=== PATIENT | female | born 1955 | race Caucasian/White ===

== ENCOUNTER 2018-07-15 09:06 | Day surgery (SDC) | payer OTHER, SELFPAY ==
[2018-07-15] VITALS (7 sets, daily range): BP systolic 93–138; BP diastolic 73–86; PULSE 88–101; RESP 16–17; TEMP 36.8–37.2; O2SAT 98–100; BMI 29.9
--- NOTE | 2018-07-15 10:55 | H&P.OPEN ---
Past Medical/Surgical History - Planned Operation Planned Operative Procedure/s: colonoscopy Date of Operative Procedure: 07/15/18 Permit Signed: No S.O.S: No Is This Patient Having a Total Joint: No - Previous Hospitalizations/Surgeries HX Hospitalizations: Yes HX of Surgeries: colonoscopy 2018 Any Problems With Anesthesia: No You/Your Family Experience Fever (Hyperthermia) With Anes: No Cholinesterase deficiency: No - Cardiovascular Hx Chest Pain within Last 2 months: No Hx of Irregular Heartbeat and/or Afib: No Hx Heart Attack: No Hx Congestive Heart Failure: No Hx Rheumatic Fever: No Hx Hypertension: No Hx Internal Defibrillator: No Hx Pacemaker: No Hx Cardiac Catheterization: No Hx Cardiac Surgery/Stents/Etc.: No Hx Stress Test: No HX Edema: No Hx Pain in Legs when Walking/Leg Cramps: Yes - Respiratory Chronic Cough: No HX of Shortness of Breath: No Hoarseness: No Hx Chronic Obstructive Pulmonary Disease (COPD): No Hx Asthma: No Hx Emphysema: No Hx Sleep Apnea: No Do You Snore Loudly (louder than talking or can be heard): No Do You Often Feel Tired/ Fatigued/ Sleepy Dring Daytime?: No Has Anyone Observed You Stop Breathing During Sleep?: No Result (for STOP score): Negative Hx Smoking: No Smoking Status: Never smoker - Gastrointestinal Hx Gastroesophageal Reflux: Yes Controlled With Meds: Yes - tums Hx Gastrointestinal Disorders: No Hx Gastrointestinal Bleed: Yes Hx Ulcer: No Hx Hiatal Hernia: No Difficulty Chewing/Swallowing: No Recent Onset of Swallowing Problems: No Special diet followed at home: No Hx Unplanned Weight Loss of 20#: No HX Unplanned Weight Gain of 20#: No - Neurological Hx Seizures: No HX Syncope/Blackout Spells/Unconsciousness: Yes - fainted as a child at Dr office Hx CVA/Stroke: No Hx Transient Ischemic Attacks (TIA): No Hx Multiple Sclerosis: No Hx Parkinson's Disease: No Hx Head/Neck Injury: No Hx Back Injury/Pain: Yes - hip adjusted thru PT/ relieved back pain Recent Onset of Speech Difficulty: No Restless Legs: No Does patient have nerve stimulator: No Patient instructed to have device shut off: No Rep notified?: No - Blood Disorder Hx Leukemia: No Bleeding Tendencies: No Hx Deep Vein Thrombosis: No Hx High Cholesterol: Yes Blood Transmitted Disease: No Hx Hepatitis: Yes - at 17yo Hx Cirrhosis: No Hx Anemia: No Hx Blood Disorders: No - Reproduction : No Are You Post Menopause: Yes - Genitourinary Hx Renal Disease: No - Musculoskeletal Hx Arthritis: Yes Hx Rheumatoid Arthritis: No Hx Gout: No Recent Onset of an Orthopedic Problem: No - Endocrine Hx Diabetes: No Thyroid Disease: No Hx Steroid Therapy: No - Psycho/Social Hx Substance Use: No Hx Alcohol Use: No Hx Anxiety: Yes Hx Depression: Yes Mental Illness: No Hx Dementia: No - Miscellaneous Hx Cancer: No Recent Exposure to Contagious Disease: No Active MRSA: No Hx of C-Diff: No Any Loose Teeth: No Allergies No Known Allergies Allergy (Unverified 06/04/18 09:04) - Discharge Who Depends On You At Home: lives with Who Could Help: After D/C, Where Do you Plan to Go: Return Home - Physical Exam General: Alert, Oriented x3, Cooperative, No apparent distress HEENT: Atraumatic, PERRLA, EOMI Lungs: Normal air movement Cardiovascular: Regular rate, Regular Rhythm Abdomen: Soft, Non Tender, Non-Distended Vital Signs Temp Pulse Resp BP Pulse Ox 99.0 F 100 16 138/86 H 100 07/15/18 09:33 07/15/18 09:33 07/15/18 09:33 07/15/18 09:33 07/15/18 09:33 Oxygen Delivery Method Room Air Weight: 174 lb 9.698 oz Body Mass Index (BMI) 29.9 Assessment/Plan 62 yo F who is here for screening colonoscopy 1. Pt has never had colonoscopy, denies any abdominal pain or gross bleeding, no family history of colon cancer. Bola Stephens Surgery Risks - Colonoscopy I discussed with the patient the risks of the procedure: Yes Risks Include but are not Limited To: Risks include but are not limited to: Bleeding, perforation requiring further surgery, inability to complete colonoscopy requiring barium enema.
--- NOTE | 2018-07-15 11:02 | OP.ENDO_ITS ---
Patient Name: Tonia Ennis Procedure Date: 07/15/2018 10:29 AM Date of : 1955 Age: 62 Procedure: Colonoscopy Indications: Screening for colorectal malignant neoplasm Providers: Bola Stephens MD Medicines: Monitored Anesthesia Care Patient Profile: Last Colonoscopy: none. The patient's first colonoscopy is today. Complications: No immediate complications. Procedure: Pre-Anesthesia Assessment: - Prior to the procedure, a History and Physical was performed, and patient medications and allergies were reviewed. The patient's tolerance of previous anesthesia was also reviewed. The risks and benefits of the procedure and the sedation options and risks were discussed with the patient. All questions were answered, and informed consent was obtained. Prior Anticoagulants: The patient has taken no previous anticoagulant or antiplatelet agents. After reviewing the risks and benefits, the patient was deemed in satisfactory condition to undergo the procedure. After I obtained informed consent, the scope was passed under direct vision. Throughout the procedure, the patient's blood pressure, pulse, and oxygen saturations were monitored continuously. The colonoscope was introduced through the anus and advanced to the terminal ileum, with identification of the appendiceal orifice and IC valve. The colonoscopy was performed without difficulty. The patient tolerated the procedure well. The quality of the bowel preparation was good. Scope In: 10:38:12 AM Scope Withdrawal Time 0 hours 6 minutes 21 seconds Scope Out: 10:51:39 AM Total Procedure Duration Time 0 hours 13 minutes 27 seconds Findings: Non-bleeding internal hemorrhoids were found during retroflexion. The hemorrhoids were moderate, medium-sized and Grade I (internal hemorrhoids that do not prolapse). The exam was otherwise without abnormality on direct and retroflexion views. Impression: - Non-bleeding internal hemorrhoids. - The examination was otherwise normal on direct and retroflexion views. - No specimens collected. Recommendation: - Discharge patient to home. - Resume previous diet. - Continue present medications. - Repeat colonoscopy in 10 years for screening purposes. Procedure Code(s): --- Professional --- 07589, Colonoscopy, flexible; diagnostic, including collection of specimen(s) by brushing or washing, when performed (separate procedure) Diagnosis Code(s): --- Professional --- Z12.11, Encounter for screening for malignant neoplasm of colon K64.0, First degree hemorrhoids CPT copyright 2017 [employer]. All rights reserved. The codes documented in this report are preliminary and upon outpatient coder review may be revised to meet current compliance requirements. Bloa Stephens MD 07/15/2018 11:01:34 AM This report has been signed electronically. Number of Addenda: 0 Note Initiated On: 07/15/2018 10:29 AM
== END 2018-07-15 11:32 | disposition home or self-care (01) ==
LOC: EN 09:07 → AC 09:08
PROVIDERS: Family Provider Family Medicine; PCP Family Medicine; Visit Provider Surgery
PROC: 0DJD8ZZ Inspection of Lower Intestinal Tract, Via Natural or Artificial Opening Endoscopic (ICD-10-PCS; CPT 45378; principal; 2018-07-15 09:55)
DX: Z12.11 Encounter for screening for malignant neoplasm of colon (principal); K64.0 First degree hemorrhoids; K21.9 Gastro-esophageal reflux disease without esophagitis; E78.00 Pure hypercholesterolemia, unspecified
CPT/HCPCS: 45378; J7120

== ENCOUNTER → 2019-11-18 13:39 | Outpatient (CLI) | payer OTHER, SELFPAY ==
[2019-11-18 13:05] VITALS: BMI 30.5
--- NOTE | 2019-11-18 13:47 | RAD_ITS ---
STUDY: X-RAY - LEFT HAND, ATTENTION THIRD FINGER REASON FOR EXAM: Female, 63 years old. LEFT 3RD IP JOINT STS AND BRUISING S/P FALL X2 MONTHS AGO TECHNIQUE: 3 view(s) of the finger were obtained. COMPARISON: None. FINDINGS: Normal metacarpal head. Normal metacarpophalangeal joint. Normal proximal phalanx. Normal middle phalanx. Normal distal phalanx. There is mild degenerative arthrosis of the proximal interphalangeal joint. Normal distal interphalangeal joint. There is no demonstrated fracture. Soft tissues are intact. RAD/Finger(s) Min 2 Views IMPRESSION: Mild arthritic change. No fracture. Soft tissues are intact. Electronically Signed: Gino Fernandez MD at 21:57 EST , Service support ,
== END ==
PROVIDERS: PCP Family Medicine; Referring Provider Family Medicine; Visit Provider Family Medicine
DX: S66.912A Strain of unspecified muscle, fascia and tendon at wrist and hand level, left hand, initial encounter (principal)
CPT/HCPCS: 73140

== ENCOUNTER → 2020-11-29 15:38 | Outpatient (CLI) | payer OTHER, SELFPAY ==
[2020-11-29 14:45] VITALS: BMI 32.8
[2020-11-29 17:04] LABS: ALB/GLOB Ratio 1.1 RATIO (0.9-2.4); AST(SGOT) 25 U/L (15-37); Alanine Aminotransfer ALT/SGPT 42 U/L (13-56); Albumin, Serum 4.1 g/dL (3.2-5.0); Alkaline Phosphatase 110 U/L (45-117); Anion Gap 5 (5-15); BUN 14 mg/dL (7-18); BUN/Creat Ratio 15.9 RATIO (10-20); Calcium,Total 9.2 mg/dL (8.5-10.1); Chloride 105 mmol/L (98-107); Cholesterol 213 mg/dL (200); Creatinine, Serum 0.88 mg/dL (0.55-1.02); EST Glomerular Filtration Rate 69 mL/min (>60); Est Glom Filt Rate - Afr Amer 83 mL/min (>60); Globulin 3.8 g/dL (2.2-4.2); Glucose 86 mg/dL (74-106); High Density Lipoprotein 49 mg/dL; Potassium 4.2 mmol/L (3.5-5.1); Protein, Total 7.9 g/dL (6.4-8.2); Sodium Level 139 mmol/L (136-145); Triglycerides 201 mg/dL; Very Low Density Lipoprotein 40 mg/dL (5-40)
== END ==
PROVIDERS: PCP Family Medicine; Referring Provider Family Medicine; Visit Provider Family Medicine
DX: E78.5 Hyperlipidemia, unspecified (principal)
CPT/HCPCS: 36415; 80053; 80061

== ENCOUNTER 2021-12-07 14:54 | Outpatient (CLI) | payer OTHER, SELFPAY ==
[2021-12-07 16:37] LABS: Absolute Lymphocyte Count 1.96 X10^3/uL (0.83-4.51); Basophil# 0.03 X10^3/uL; Basophil% 0.5 % (0-1); Eosinophil# 0.04 X10^3/uL; Eosinophils% 0.6 % (0-5); Hematocrit 41.4 % (37-47); Lymphocyte # 1.96 X10^3/ul (0.83-4.51); Lymphocyte % 29.7 % (19-41); Mean Corp Hgb Conc 33.8 g/dL (32-36); Mean Corpuscular Hgb 29.3 pg (27.0-32.0); Mean Corpuscular Volume 86.6 fL (81-99); Monocyte# 0.56 X10^3/uL; Monocyte% 8.5 % (0-10); NRBC Flagged by Analyzer 0 % (0-5); Neutrophil # 3.98 X10^3/uL (2.7-7.7); Neutrophil % 60.4 % (47-70); Platelet Count 232 K/mm3 (150-450); RBC Distribution Width CV 12.8 % (11.6-14.6); RBC Distribution Width SD 40.2 fl (35.1-43.9); Red Blood Count 4.78 M/mm3 (4.2-5.4); White Blood Count 6.6 K/mm3 (4.4-11.0)
[2021-12-07 17:34] LABS: ALB/GLOB Ratio 1.2 RATIO (0.9-2.4); AST(SGOT) 16 U/L (15-37); Alanine Aminotransfer ALT/SGPT 30 U/L (13-56); Albumin, Serum 4.3 g/dL (3.2-5.0); Alkaline Phosphatase 105 U/L (45-117); Anion Gap 4 (5-15); BUN 20 mg/dL (7-18); BUN/Creat Ratio 22.2 RATIO (10-20); Calcium,Total 9.2 mg/dL (8.5-10.1); Chloride 104 mmol/L (98-107); Cholesterol 167 mg/dL (200); EST Glomerular Filtration Rate 67 mL/min (>60); Est Glom Filt Rate - Afr Amer 81 mL/min (>60); Globulin 3.7 g/dL (2.2-4.2); Glucose 92 mg/dL (74-106); High Density Lipoprotein 44 mg/dL; Potassium 4.4 mmol/L (3.5-5.1); Sodium Level 137 mmol/L (136-145); Triglycerides 142 mg/dL; Very Low Density Lipoprotein 28 mg/dL (5-40)
== END 2021-12-07 23:59 | disposition home or self-care (01) ==
LOC: BIMLAB 14:54
PROVIDERS: PCP Family Medicine; Referring Provider Family Medicine; Visit Provider Family Medicine
DX: E78.2 Mixed hyperlipidemia (principal)
CPT/HCPCS: 36415; 80053; 80061; 85025

== ENCOUNTER → 2023-02-13 | Outpatient (CLI) | payer OTHER, SELFPAY ==
[2023-02-13 12:48] LABS: Absolute Lymphocyte Count 1.45 X10^3/uL (0.83-4.51); Absolute Neutrophil Count 3.9 X10^3/uL (2.0-7.7); Basophil# 0.02 X10^3/uL; Basophil% 0.3 % (0-1); Eosinophil# 0.05 X10^3/uL; Eosinophils% 0.9 % (0-5); Hemoglobin 14.5 g/dL (12.0-15.0); Lymphocyte # 1.45 X10^3/ul (0.83-4.51); Lymphocyte % 24.7 % (19-41); Mean Corpuscular Hgb 29.2 pg (27.0-32.0); Mean Corpuscular Volume 88.7 fL (81-99); Monocyte# 0.41 X10^3/uL; NRBC Flagged by Analyzer 0 % (0-5); Neutrophil # 3.92 X10^3/uL (2.7-7.7); Neutrophil % 66.6 % (47-70); Platelet Count 218 K/mm3 (150-450); RBC Distribution Width CV 12.9 % (11.6-14.6); RBC Distribution Width SD 41.9 fl (35.1-43.9); Red Blood Count 4.96 M/mm3 (4.2-5.4); White Blood Count 5.9 K/mm3 (4.4-11.0)
[2023-02-13 13:47] LABS: AST(SGOT) 26 U/L (15-37); Alanine Aminotransfer ALT/SGPT 47 U/L (13-56); Alkaline Phosphatase 117 U/L (45-117); Anion Gap 4 (5-15); BUN 14 mg/dL (7-18); BUN/Creat Ratio 15.7 RATIO (10-20); Calcium,Total 9.5 mg/dL (8.5-10.1); Chloride 106 mmol/L (98-107); Cholesterol 197 mg/dL (200); Creatinine, Serum 0.89 mg/dL (0.55-1.02); EST Glomerular Filtration Rate 68 mL/min (>60); Est Glom Filt Rate - Afr Amer 82 mL/min (>60); Globulin 4.1 g/dL (2.2-4.2); Glucose 99 mg/dL (74-106); High Density Lipoprotein 44 mg/dL; Potassium 3.9 mmol/L (3.5-5.1); Protein, Total 8.1 g/dL (6.4-8.2); Sodium Level 137 mmol/L (136-145); Triglycerides 185 mg/dL; Very Low Density Lipoprotein 37 mg/dL (5-40)
== END | disposition home or self-care (01) ==
LOC: BIMLAB 11:03
PROVIDERS: PCP Family Medicine; Visit Provider Family Medicine
DX: E78.2 Mixed hyperlipidemia (principal)
CPT/HCPCS: 36415; 80053; 80061; 85025

== ENCOUNTER → 2023-02-15 | Outpatient (CLI) | payer OTHER, SELFPAY ==
--- NOTE | 2023-02-15 10:57 | US_ITS ---
INDICATION: abdominal pain, intermittent x several years EXAMINATION: US Abdomen Complete TECHNIQUE: Apple-scale and color Doppler imaging was performed of the abdomen. COMPARISON: None. Findings: The liver is diffusely homogenous with overall increased echogenicity. There is no evidence of contour nodularity. No focal hepatic mass is identified. The main portal vein is normal in size and patent demonstrating hepatopetal flow. The gallbladder is unremarkable without evidence of stones, wall thickening or pericholecystic fluid. Sonographic Johnson''s tenderness is not appreciated. There is no evidence of intrahepatic biliary ductal dilatation. The CBD is nondilated measuring 3 mm at the level of the poncho hepatis. The visualized portions of the pancreas are unremarkable without evidence of focal or diffuse enlargement. Specifically, the tail is obscured by overlying bowel gas. The spleen is normal in size. Right and left kidneys measure 9.6 cm and 9.5 cm in length respectively. The kidneys are normal in echogenicity. No focal renal lesion is identified. There is no evidence of hydronephrosis bilaterally. The abdominal aorta is normal in caliber where seen. The intrahepatic inferior vena cava is patent. There is no free intraperitoneal fluid identified. US/Abdomen Complete IMPRESSION: Hyperechoic liver without evidence of contour nodularity. Findings are nonspecific and may be consistent with sequelae of fatty infiltration or other forms of diffuse liver disease. No evidence of focal hepatic mass. Remainder of the exam is otherwise unremarkable. Electronically Signed: Sudhakar Ling MD at 23:30 EDT ,
== END | disposition home or self-care (01) ==
PROVIDERS: PCP Family Medicine; Referring Provider Family Medicine; Visit Provider Family Medicine
DX: R10.9 Unspecified abdominal pain (principal)
CPT/HCPCS: 76700

== ENCOUNTER 2023-03-22 06:00 | Day surgery (SDC) | payer OTHER, SELFPAY ==
--- NOTE | 2023-03-22 | GASB_PTH ---
PATIENT: MICHELLE HARMAN LOC: EN U#:[id number] AGE/SX: 67/F ROOM: RE03/22/[address]: Dr. Derek Reaves MD : 1955 BED: DIS: 03/22/2023 SPEC #: [id number] RECD: 03/22/23 08:19 STATUS: EL MINERVA #: [id number] LAM: 03/22/23 00:[address]: Derek Reaves DEPT: SURGICAL PATHOLOGY RECD BY: Bharat Vickers ENTERED: 03/22/23 09:02 SP TYPE: Gastric Bx OTHR DR: Dr. Paul Reyes, DO Tissues: A - Duodenum, NOS B - Gastric mucous membrane C - Gastric mucous membrane D - Esophageal mucous membrane E - Esophageal mucous membrane F - Esophageal mucous membrane Procedures: Special Stain Group II Special Stain Group I Surgery Specimen Level IV GMS Stain (control) Alcian Blue/PAS (control) HEADER OPERATION: EGD ([facility] [place]) with biopsies and polypectomy PRE-OP DIAGNOSIS: Swallowing problem, abdominal pain, acid reflux TISSUE SUBMITTED: A ? Duodenal bulb polyp biopsy, B ? Antrum biopsy for H. pylori and path, C ? Cardia polyp biopsy, D ? Distal esophagus lesion polyp, E ? Distal esophagus biopsy, mucosal change, concern for Augustine?s, F ? Middle third esophagus nodule biopsy MICROSCOPIC DIAGNOSIS A. Duodenal bulb polyp, biopsy: Fragments of duodenal mucosa with mild nonspecific chronic inflammation and gastric metaplasia. B. Antrum, biopsy: Mild gastritis. See microscopic description and comment. C. Cardia polyp, biopsy: Mild gastritis. See microscopic description. D. Distal esophagus lesion polyp, biopsy: A fragment of gastric mucosa with changes consistent with fundic gland polyp. Intestinal metaplasia (goblet cell metaplasia) not identified. See comment. E. Distal esophagus, biopsy: Fragments of squamous mucosa with extensive ulceration and associated acute inflammation and fibrinous exudation. See comment. F. Middle third esophagus nodule, biopsy: Fragments of benign squamous mucosa with congestion. See comment. SJ:rg 03/25/2023 COMMENT B. The results of immunohistochemistry for Helicobacter pylori will be reported separately ([id number]). D. Alcian blue/PAS stain with matched control is used in the evaluation of the specimen. E. Special stain for fungi is negative for organisms; matched control is appropriate. Epithelium is denuded in most of the specimen. F. Detached fragments of squamous epithelium with bacterial colonization is noted. Special stain for fungi is positive for organisms in these fragments consistent with Lina species (yeast and pseudohyphae); matched control is appropriate. A few minute fragments of gastric epithelium are also noted. Intestinal metaplasia (goblet cell metaplasia) is not identified. Alcian blue/PAS stain with matched control is used in the evaluation of the specimen. Correlation with clinical, endoscopic findings and appropriate follow-up are necessary. MICROSCOPIC DESCRIPTION Slides are reviewed. B. The specimen shows fragments of gastric mucosa with chronic inflammatory cell infiltrates in the lamina propria consisting of lymphocytes and plasma cells, consistent with mild chronic gastritis. Hyperplastic or fundic gland polyp changes are not seen. C. The specimen shows fragments of gastric mucosa with chronic inflammatory cell infiltrates in the lamina propria consisting of lymphocytes and plasma cells, consistent with mild chronic gastritis. GROSS DESCRIPTION A - Received in fixative is one container labeled with the patient's name and designated duodenal bulb polyp biopsy. The specimen consists of multiple irregular fragments of light almazan soft tissue that in aggregate measure 1.2 x 0.1 x 0.1 cm. The specimen is totally submitted in one cassette. B - Received in fixative is one container labeled with the patient's name and designated antrum biopsy. The specimen consists of multiple irregular fragments of light almazan soft tissue that in aggregate measure 0.4 x 0.3 x 0.1 cm. The specimen is totally submitted in one cassette. C - Received in fixative is one container labeled with the patient's name and designated cardia polyp biopsy. The specimen consists of multiple irregular fragments of light almazan soft tissue that in aggregate measure 0.3 x 0.3 x 0.1 cm. The specimen is totally submitted in one cassette. D - Received in fixative is one container labeled with the patient's name and designated distal esophagus lesion polyp. The specimen consists of a almazan-pink polyp measuring 0.5 x 0.5 x 0.2 cm. A few fragments of food particles are also noted. The specimen is totally submitted in one cassette. E - Received in fixative is one container labeled with the patient's name and designated distal esophagus biopsy, mucosal change, concern for Augustine's. The specimen consists of two irregular fragments of light almazan soft tissue that in aggregate measure 0.6 x 0.3 x 0.1 cm. The specimen is totally submitted in one cassette. F - Received in fixative is one container labeled with the patient's name and designated middle third esophagus nodule biopsy. The specimen consists of multiple irregular fragments of light almazan soft tissue that in aggregate measure 1.0 x 0.3 x 0.1 cm. The specimen is totally submitted in one cassette. / SJ:rg 03/22/2023 TC:2 CPT: 72775 x6, 40354 x2, 26619 x2
[2023-03-22 06:40] VITALS: BP 128/79; PULSE 98; RESP 16; TEMP 36.3; O2SAT 98; BMI 34.8
--- NOTE | 2023-03-22 07:00 | IMM_PTH ---
PATIENT: MICHELLE HARMAN LOC: EN U#:[id number] AGE/SX: 67/F ROOM: RE03/22/[address]: Dr. Derek Reaves MD : 1955 BED: DIS: 03/22/2023 SPEC #: [id number] RECD: 03/22/23 12:59 STATUS: EL REJamarcus #: [id number] LAM: 03/22/23 07:[address]: Derek Reaves DEPT: IMMUNOHISTOCHEMISTRY RECD BY: Iris Villalobos ENTERED: 03/22/23 13:00 SP TYPE: IMMUNO OTHR DR: Dr. Paul Reyes, Tissues: B - Stomach, NOS Procedures: H Pylori (initial) PHYSICIAN & INSTITUTION [place] [id number] SPECIMEN INFORMATION: Tissue Source: B - Antrum Clinical Info: Swallowing problem, abdominal pain, acid reflux Specimen Number: [id number] CPT code: 95099 METHODOLOGY: Deparaffinized sections of prefer/formalin-fixed tissue or PAP/DQ stained slides are incubated with monoclonal/polyclonal antibodies/oligonucleotide probes. Localization is made via biotin free immunoperoxidase method. Appropriate controls are performed and reacted as expected. Results on target cell population are indicated in the following table: RESULTS: ANTIBODY / CLONE RESULT Block B H Pylori (polyclonal) negative These tests were developed and their performance characteristics determined by [facility]. They may not have been cleared or approved by the [place]. Food and Drug Administration. The FDA has determined that such clearance or approval is not necessary. The above immunohistochemical/dualISH markers are ordered and reviewed by the Pathologist. INTERPRETATION: B. Antrum, biopsy: Negative for Helicobacter pylori organisms. SJ:adam 03/25/2023
[2023-03-22] MEDS: Lactated Ringers 1,000 ML 15 ML IV (07:03)
--- NOTE | 2023-03-22 07:03 | PCM.HP.BLA ---
History and Physical Date of Admission: 03/22/23 Date of Service:? 03/19/23 MR#: [id number] Acct: [id number] Name:MICHELLE DWYER Rep #: [id number] : 1955 ? ? Provider: Dr. Derek Reaves MD Age/Sex:? 67/F ? ? Location: [facility] Status: Signed Intake Vital Signs ? 03/19/2313:15 Height 5 ft 4 in Weight: 204 lb BMI 35.0 BP 126/84 H Blood Pressure Location Rt brachial Position Sitting Respiration 16 Intake Visit Reasons:?UPPER SCOPE - DIFFICULTY SWALLOWING Chief Complaint: upper scope Industrial Relations Representative Required: No Is patient in pain?: No Allergies No Known Allergies Allergy (Verified 03/19/23 14:27) Medications minocycline 100 mg tablet 100 mg PO DAILY PRN Rosacea #30 tabs 02/13/23 [Rx Confirmed 03/19/23] simvastatin 10 mg tablet 10 mg PO QPM cholesterol #90 tabs 02/13/23 [Rx Confirmed 03/19/23] venlafaxine 75 mg capsule,extended release 24 hr (Effexor XR) 75 mg PO QAM #90 caps 02/13/23 [Rx Confirmed 03/19/23] PFSH Medical History?(Updated 03/19/23 @ 17:[address] Derek Reaves MD) Anxiety Difficulty swallowing Gastric reflux Hepatitis High cholesterol Hyperlipidemia Non-smoker Wears contact lenses Wears glasses Surgical History? History of colonoscopy Family History? Father Heart disease GlaucomaMother Diabetes HypertensionSister Breast cancer Hypertension Heart disease Partial deafness Social History? Smoking Status:? Never smoker alcohol intake:? current alcohol intake frequency: holidays/special occasions only substance use type:? does not use what type of physical activity do you participate in:? none HPI HPI HPI: Patient is a 67-year-old female who presents for complaints of dysphagia.? They are referred for surgical consultation from Dr. Reyes. ? Patient states that all of her work-up started when she first noticed pain in her right upper quadrant.? She notes that she initially had a right upper quadrant ultrasound that showed a gallstone, but subsequent imaging (x2) have not shown this finding.? She estimates that her current complaints of food becoming stuck began roughly last September.? She states that initially she became panicky but now tells her self to simply breathe.? She states that this symptom occurs almost every day at lunchtime.? She has not identified any particular food triggers.? However, she does note that this is usually fast food and tend to be sandwiches.? She has not noticed a progressive character to the symptoms.? She states where things feel stuck is behind her breastbone.? She denies things becoming stuck higher up. She confirms that sometimes she will wake up in the evenings with throw up in the back of [her] mouth.? She confirms that this is not every day.? She does note that it is worse if she is eating pizza or eats later at night.? She estimates this occurs at a frequency of 1 time per week.? She denies sleeping with her head propped up. Patient's current caffeine intake amounts to a lot of iced tea.? She states that when drinking such beverages she will experience pain that goes up into her neck and jaw as well as across her right upper arm. Patient states that she takes dinner at approximately 7 PM and then retires to bed between 10 and 11 PM.? She notes occasional snacking after dinner. When the above symptoms present patient takes Tums and twice has taken Tagamet.? She notes that she takes Tums at least once every day, but sometimes multiple times per day. Patient confirms a history of weight gain.? She estimates that she has gained 30 to 40 pounds since COVID.? She attributes this to decreased activity. Additionally, patient confirms that she has become a snorer where previously she did not used to snore. Patient also confirms a history of frequent coughing which she believed was related to her COVID vaccination, but with our discussions there is question whether there may be an alternative source. Patient has no prior surgical history. Patient denies any current prescription for PPI medication. Patient confirms a history of colonoscopy in [address] Stephens.? She was found to have hemorrhoids, but nothing additional was remarkable and she was given 10-year follow-up. ROS General General: Yes weight change; No appetite, fatigue, colon cancer, breast cancer or weakness HEENT HEENT: Yes difficulty swallowing; No eye injury, eye surgery, swollen glands or hoarseness Endo Endocrine: No thyroid disease, diabetes mellitus, thyroid cancer, Hair loss, heat intolerance or cold intolerance Skin Skin: No rash or changing moles Breast Breast: No left breast lump, right breast lump, nipple discharge, breast pain, abnormal mammogram, abnormal US or breast enlargement Musc Musculoskeletal: No back problems, arthritis, rheumatoid arthritis, gout or joint pain Cardio Cardiovascular: No murmur, pacemaker, heart disease, atrial fibrillation, high blood pressure, heart attack, heart stent, palpitations, shortness of breat with exertion or chest pain Psych Psychiatric: Yes anxiety; No depression or hearing voices Resp Respiratory: No shortness of breath, No sleep apnea, No cough, No COPD, No asthma, No emphysema and No wheezing Gastro Gastrointestinal: No abdominal pain, No nausea or vomiting, No diarrhea, No constipation, No blood in stool, No acid reflux, Yes hemorrhoids, No ulcers, No gallbladder problem and No black,tarry stools Jf Hematologic: No blood thinners, No blood disorders, No bleeding, No anemia and No blood clots Neuro Neurologic: No system reviewed and no additional complaints, except as documented, No as per HPI, No abnormal gait, No abnormal hearing, No abnormal movements, No abnormal speech, No behavioral changes, No burning sensations, No confusion, No convulsions, No disequilibrium, No dizziness, No localized weakness, No frequent falls, No headache(s), No lack of coordination, No loss of vision, No memory loss, No numbness, No other visual disturbances, No radicular pain, No restless legs, No sensory deficit, No syncope, No tingling, No tremor(s), No weakness and No other Exam Const General: cooperative and anxious Orientation: alert, awake and oriented x3 Resp Effort & Inspection: normal respiratory effort GI Other: No scars, nondistended, soft, mildly tender to palpation of the right upper quadrant (but otherwise benign with palpation throughout the abdomen).? Negative Johnson sign. Assessment and Plan Assessment and Plan (1) Swallowing problem: ?Status:?Acute ?Comment: Patient describes several month history of swallowing difficulty as if things become stuck in the retrosternal position.? Based on her history of frequent reflux as well I am suspicious for possible hiatal hernia versus and gastritis/esophagitis versus other.? She clearly denies any concern for things becoming stuck higher up in her cervical esophagus.? Her abdominal exam is benign.? Given the duration of her symptoms, I do find it reasonable to pursue a diagnostic EGD.? Colonoscopy is not indicated at this time given a normal study in 2018 with 10-year follow-up and no concerning lower GI symptoms.? I have offered to start a PPI medication at this time versus await EGD findings.? At this time she is inclined to wait on starting the medication.? The relevant anatomy and physiology was discussed with hand drawings of normal versus pathologic anatomical relationships.? All questions were taken from the patient and her spouse.? Preventative strategies for minimizing reflux symptoms were given. ?Plan: ? Diagnostic EGD to be performed at our mutual convenience. ? Patient encouraged to minimize caffeine, space out mealtime from bedtime, and prop up her head at nighttime (2) Abdominal pain: ?Status:?Chronic ?Comment: Patient describes near constant right upper quadrant discomfort.? There is no postprandial onset.? Patient has not identified any food triggers.? Based on history, this does not seem to be very suggestive of gallbladder etiology.? Further, patient has had 3 studies of her gallbladder via ultrasound and the latest 2 studies have failed to find gallstones.? Should patient's history changed to more of a postprandial onset, HIDA imaging could be considered for possible rule out biliary dyskinesia. (3) Weight increasing: ?Status:?Chronic ?Comment: I suspect this may be contributing to patient's reflux experience and the relationship to reflux was detailed with patient and her . (4) Acid reflux: ?Status:?Acute ?Comment: Patient describes semifrequent nighttime awakenings with acid and esophageal discomfort.? Patient taking Tums every day for the symptoms.? PPI offered, but patient wishes to defer decision until after EGD.? See above. Interval: Pt confirms the above and states that she has already tried to make changes out of our conversation; now cutting back on caffeine intake and exercising. She believes there has been some response with cutting back on caffeine. There are no questions from either her or her spouse so we will proceed with EGD as planned.
[2023-03-22 08:07] VITALS: BP 120/86; PULSE 98; RESP 18; TEMP 36.2; O2SAT 97
[2023-03-22 08:10] VITALS: BP 120/86; BP 123/81; PULSE 96; RESP 18; O2SAT 99
--- NOTE | 2023-03-22 08:13 | OP.EGD_ITS ---
Patient Name: Tonia Ennis Procedure Date: 03/22/2023 7:04 AM Date of : 1955 Age: 67 Procedure: Upper GI endoscopy Indications: Suspected gastro-esophageal reflux disease Providers: Derek Reaves MD Referring MD: Derek Reaves MD Medicines: See the Anesthesia note for documentation of the administered medications Patient Profile: Refer to note in patient chart for documentation of history and physical. Patient has symptoms of chronic dysphagia. Complications: No immediate complications. Estimated blood loss: Minimal. Procedure: Pre-Anesthesia Assessment: - The heart rate, respiratory rate, oxygen saturations, blood pressure, adequacy of pulmonary ventilation, and response to care were monitored throughout the procedure. After obtaining informed consent, the endoscope was passed under direct vision. Throughout the procedure, the patient's blood pressure, pulse, and oxygen saturations were monitored continuously. The gastroscope was introduced through the mouth, and advanced to the second part of duodenum. The upper GI endoscopy was accomplished without difficulty. The patient tolerated the procedure. Scope In: 7:21:41 AM Scope Out: 7:56:06 AM Total Procedure Duration Time 0 hours 34 minutes 25 seconds Findings: No gross lesions were noted in the second portion of the duodenum. No biopsies or other specimens were collected for this exam. A few 2 mm semi-sessile polyps with no bleeding were found in the duodenal bulb. Biopsies were taken with a cold forceps for histology. Estimated blood loss was minimal. Localized mild inflammation characterized by erythema was found in the gastric antrum. Biopsies were taken with a cold forceps for Helicobacter pylori testing. Estimated blood loss was minimal. A few 3 mm pedunculated and sessile polyps with no bleeding and no stigmata of recent bleeding were found in the cardia. Biopsies were taken with a cold forceps for histology. Estimated blood loss was minimal. The Z-line was irregular and was found 35 cm from the incisors. No biopsies or other specimens were collected for this exam. A medium-sized hiatal hernia was present. LA Grade C (one or more mucosal breaks continuous between tops of 2 or more mucosal folds, less than 75% circumference) esophagitis with no bleeding was found 32 to 36 cm from the incisors. Biopsies were taken with a cold forceps for histology. Estimated blood loss was minimal. A single 5 mm polyp with no bleeding was found 35 cm from the incisors. The polyp was removed with a hot snare. Resection and retrieval were complete. Estimated blood loss was minimal. A few 5 mm mucosal nodules with a localized distribution were found in the middle third of the esophagus. Biopsies were taken with a cold forceps for histology. Estimated blood loss was minimal. Impression: - No gross lesions in the second portion of the duodenum. No specimens collected. - A few duodenal polyps. Biopsied. - Gastritis. Biopsied. - A few gastric polyps. Biopsied. - Z-line irregular, 35 cm from the incisors. No specimens collected. - Medium-sized hiatal hernia. - LA Grade C reflux esophagitis. Rule out Augustine's esophagus. Biopsied. - Esophageal polyp(s) were found. Resected and retrieved. - Mucosal nodule found in the esophagus. Biopsied. Recommendation: - Discharge patient to home (via wheelchair). - Soft diet today. - Use Protonix (pantoprazole) 40 mg PO daily today. - Continue present medications. Procedure Code(s): --- Professional --- 67388, 59, Esophagogastroduodenoscopy, flexible, transoral; with biopsy, single or multiple Diagnosis Code(s): --- Professional --- K31.7, Polyp of stomach and duodenum K29.70, Gastritis, unspecified, without bleeding K22.8, Other specified diseases of esophagus K44.9, Diaphragmatic hernia without obstruction or gangrene K21.0, Gastro-esophageal reflux disease with esophagitis CPT copyright 2017 [employer]. All rights reserved. The codes documented in this report are preliminary and upon braille coder review may be revised to meet current compliance requirements. Derek Reaves MD 03/22/2023 8:12:45 AM This report has been signed electronically. Number of Addenda: 0 Note Initiated On: 03/22/2023 7:04 AM
--- NOTE | 2023-03-22 08:14 | OP.CCLET_ITS ---
03/22/2023 Paul Reyes Re : Upper GI endoscopy procedure for Tonia Ennis Dear Dr. Reyes This procedure was performed on Wednesday, March 22, 2023. My impressions and recommendations are as follows: Impressions : - No gross lesions in the second portion of the duodenum. No specimens collected. - A few duodenal polyps. Biopsied. - Gastritis. Biopsied. - A few gastric polyps. Biopsied. - Z-line irregular, 35 cm from the incisors. No specimens collected. - Medium-sized hiatal hernia. - LA Grade C reflux esophagitis. Rule out Augustine's esophagus. Biopsied. - Esophageal polyp(s) were found. Resected and retrieved. - Mucosal nodule found in the esophagus. Biopsied. Recommendations : - Discharge patient to home (via wheelchair). - Soft diet today. - Use Protonix (pantoprazole) 40 mg PO daily today. - Continue present medications. My findings are described in the full procedure note, which is enclosed. If I can be of further assistance, please feel free to contact me at Doctor phone number(s): , Work: . Sincerely, Derek Reaves MD 03/22/2023 8:12:45 AM This report has been signed electronically.
[2023-03-22 08:19] VITALS: BP 120/86; BP 127/81; PULSE 105; RESP 18; O2SAT 100
[2023-03-22 08:20] VITALS: BP 117/78; BP 120/86; PULSE 82; RESP 18; TEMP 36.4; O2SAT 99
[2023-03-22 08:51] VITALS: BP 120/86
== END 2023-03-22 08:52 | disposition home or self-care (01) ==
LOC: EN 06:06 → AC 06:06
PROVIDERS: PCP Family Medicine; Referring Provider Family Medicine; Visit Provider Surgery
PROC: 0DJ08ZZ Inspection of Upper Intestinal Tract, Via Natural or Artificial Opening Endoscopic (ICD-10-PCS; CPT 43235; principal; 2023-03-22 06:55)
DX: K21.00 Gastro-esophageal reflux disease with esophagitis, without bleeding (principal); M54.2 Cervicalgia; R13.10 Dysphagia, unspecified; K22.81 Esophageal polyp; K44.9 Diaphragmatic hernia without obstruction or gangrene; M79.621 Pain in right upper arm; K31.7 Polyp of stomach and duodenum; K29.70 Gastritis, unspecified, without bleeding; K22.70 Barrett's esophagus without dysplasia
CPT/HCPCS: 43239; 43251; 88305; 88312; 88313; 88342; J7120; J2405

== ENCOUNTER → 2023-09-05 | Outpatient (CLI) | payer OTHER, SELFPAY ==
--- NOTE | 2023-09-05 08:04 | MRI_ITS ---
STUDY: MRI RIGHT SHOULDER REASON FOR EXAM: Female, 67 years old. Pain right shoulder. TECHNIQUE: Standardized fat and water weighted pulse sequences were obtained in all 3 orthogonal planes. COMPARISON: Right shoulder radiographs dated 08/06/2023. FINDINGS: There is a partial thickness bursal surface tear of the anterior distal supraspinatus tendon insertion, overall measuring 5 mm in length (coronal T2 series 6 images 14-15) and 7 mm in width (axial T2 series 4 image 7). Normal infraspinatus tendon. There is subscapularis tendinosis. Normal teres minor tendon. Normal supraspinatus muscle. Normal infraspinatus muscle. Normal subscapularis muscle. Normal teres minor muscle. There is a tiny glenohumeral joint effusion. Normal humeral head and visualized proximal humerus. Normal biceps labral complex. Normal intracapsular long biceps tendon. Normal labrum. Normal capsulo-ligamentous complex. Normal rotator interval. There is mild hypertrophic acromioclavicular arthrosis, with inferior osteophyte formation. There is a Type II morphology (curved), with a neutral orientation. There is a small amount of subacromial-subdeltoid bursal fluid. Normal visualized coracohumeral and coracoacromial ligaments. Normal quadrilateral space. Normal axillary space. Normal deltoid muscle. Normal trapezius muscle. MRI/Upper Ext Joint Only(Routine) IMPRESSION: 5 x 7 mm partial thickness bursal surface tear of the anterior distal supraspinatus tendon insertion. Subscapularis tendinosis. Mild hypertrophic acromioclavicular arthrosis, with inferior osteophyte formation. Mild subacromial-subdeltoid bursitis. Tiny glenohumeral joint effusion. Electronically Signed: Wander Arredondo MD at 9:50 EST ,
== END | disposition home or self-care (01) ==
LOC: MRI 07:56
PROVIDERS: PCP Family Medicine; Referring Provider Orthopaedic Surgery Sports Medicine; Visit Provider Orthopaedic Surgery Sports Medicine
DX: M25.511 Pain in right shoulder (principal)
CPT/HCPCS: 73221

== ENCOUNTER → 2023-10-23 | Outpatient (CLI) | payer OTHER, SELFPAY ==
[2023-10-23 09:25] LABS: Bacteria 0 SEEN /hpf (None Seen); Mucous, Urine 0 SEEN /hpf (<or=2+); Red Blood Cells-Urine 0 SEEN /hpf (0-5); Squamous Epithelial Cells - UA 0 SEEN /hpf (5-10); White Blood Cells 0 SEEN /hpf (0-5)
--- OUTSIDE RECORDS SUMMARY | 2023-10-23 10:34 | XMS RPT_ITS | CCD ---
Author Name Unknown Address [facility] [address] [place] [id number] Organization [facility] Care Team Providers Care Independent Living Instructor Name Role Phone JEMAL FAITH DO Primary Care Physician JEMAL FAITH DO Primary Care Unavailable JEMAL FAITH DO Attending Linnea ESTRELLA MD, ANGELICA Attending Unavailable JEMAL FAITH DO Primary Care Unavailable Results Test Name Value Interpretation Reference Range Facil ity Encounters Encounter Date Encounter Type Care Provider Facility Start: 08-07-2023 ambulatory ANGELICA ESTRELLA MD Facil ity:B Start: 02-25-2023 End: 02-26-2023 ambulatory JEMAL FAITH DO Facility:B Start: 02-25-2023 End: 02-25-2023 Patient encounter procedure JEMAL FAITH DO [facility] Start: 12-15-2021 End: 12-15-2021 Patient encounter procedure JEMAL FAITH DO [facility] Immunizations Immunization Date Immunization Notes Care Provider Fa cility 12-26-2020 COVID-19, mRNA, LNP- S, PF, 100 mcg or 50 mcg dose; Translations: [Moderna COVID-19 Vaccine] JEMAL FAITH DO [facility] 07-29-2020 influenza virus vaccine, unspecified formulation JEMAL FAITH DO [facility] 10-25-2019 influenza virus vaccine, unspecified formulation JEMAL FAITH DO [facility] 08-29-2018 influenza virus vaccine, unspecified formulation JEMAL FAITH DO [facility] 09-09-2014 influenza virus vaccine, unspecified formulation JEMAL FAITH DO [facility] Payers Date Payer Category Payer Unknown [id number] 1955 Unknown [id number] 1955 Unknown [id number] Clinical Note 02-25-2023 Note Date & Type Note Facility 02-25-2023 Note ORIGINAL FROM: [place] [address] PROCEDURE FOR: MICHELLE HARMAN [address] [place] [address] Home: PID#: [id number] Exam#: [id number] : 1955 Age: 67 TO: JEMAL FAITH DO [address] [place] [address] EXAMINATION: SCREENING DIGITAL BILATERAL MAMMOGRAM WITH TOMOSYNTHESIS, 02/25/2023 7:52 am TECHNIQUE: Screening mammography of the bilateral breasts was performed with tomosynthesis. 2D standard and 3D tomosynthesis combination imaging performed through both breasts in the MLO and CC projection. Computer aided detection was utilized in the interpretation of this exam. COMPARISON: 12/15/2021, 11/09/2020 HISTORY: Breast cancer screening. FINDINGS: BREAST DENSITY: Scattered fibroglandular tissue There are benign appearing densities in both breasts. There are no significant masses or calcifications. IMPRESSION: No mammographic evidence of malignancy. Continued screening with annual mammograms is recommended. BIRADS: MAMMOGRAM BI-RADS: 2: Benign finding RECALL: 1 year screening RECALL TYPE: mammo LETTER SENT: Normal BI-RADS 1 and 2 Interpreted by: Dandre Florez MD Preliminary Report By: Dandre Florez MD Electronically signed By Dandre Florez MD Dictated Date: 02/25/2023 2:35:21 PM Prelim Date: 02/25/2023 2:42:03 PM Sign Date: 02/25/2023 2:42:03 PM Ordering Provider: JEMAL FAITH [employer] Operator: FABIAN DOYLE RT(R) (M) letter sent: Normal BI-RADS 1 and 2 Mammogram BI-RADS: 2 Benign [facility] Clinical Note 02-25-2023 Note Date & Type Note Facility 02-25-2023 Note ORIGINAL FROM: [place] [address] PROCEDURE FOR: MICHELLE HARMAN [address] [place] [address] Home: PID#: [id number] Exam#: [id number] : 1955 Age: 67 TO: JEMAL FAITH DO [address] [place] [address] EXAMINATION: SCREENING DIGITAL BILATERAL MAMMOGRAM WITH TOMOSYNTHESIS, 02/25/2023 7:52 am TECHNIQUE: Screening mammography of the bilateral breasts was performed with tomosynthesis. 2D standard and 3D tomosynthesis combination imaging performed through both breasts in the MLO and CC projection. Computer aided detection was utilized in the interpretation of this exam. COMPARISON: 12/15/2021, 11/09/2020 HISTORY: Breast cancer screening. FINDINGS: BREAST DENSITY: Scattered fibroglandular tissue There are benign appearing densities in both breasts. There are no significant masses or calcifications. IMPRESSION: No mammographic evidence of malignancy. Continued screening with annual mammograms is recommended. BIRADS: MAMMOGRAM BI-RADS: 2: Benign finding RECALL: 1 year screening RECALL TYPE: mammo LETTER SENT: Normal BI-RADS 1 and 2 Interpreted by: Dandre Florez MD Preliminary Report By: Dandre Florez MD Electronically signed By Dandre Florez MD Dictated Date: 02/25/2023 2:35:21 PM Prelim Date: 02/25/2023 2:42:03 PM Sign Date: 02/25/2023 2:42:03 PM Ordering Provider: JEMAL FAITH [employer] Operator: FABIAN DOYLE RT(R) (M) letter sent: Normal BI-RADS 1 and 2 Mammogram BI-RADS: 2 Benign [facility] Evaluation + Plan note Note Date & Type Note Facility Evaluation + Plan note No data available for this section [facility] Hospital Discharge instructions Note Date & Type Note Facility Hospital Discharge instructions No data available for this section [facility] Summary Purpose Family History No Family History Records Found Advance Directives No Advanced Directives Records Found Additional Source Comments Patient Care team informatio n (unrecognized section and content) Care Team Personnel Name: JEMAL FAITH DO Member Role: Primary Care Physician Address: Address: [facility] [address] [place] [address] Care Team Related Persons Name: ELÍAS HARMAN Address: [address] INFORMATION SOURCE (unrecogn ized section and content) FOR RECORDS PERTAINING TO PATIENTS WHO ARE OR HAVE BEEN ENROLLED IN A CHEMICAL DEPENDENCY/SUBSTANCEABUSE PROGRAM, SOME INFORMATION MAY BE OMITTED. This clinical summary was aggregated from multiple sources. Caution should be exercised in using it in the provision of clinical care. This summary normalizes information from multiple sources, and as a consequence, information in this document may materially change the coding, format and clinical context of patient data. In addition, data may be omitted in some cases. CLINICAL DECISIONS SHOULD BE BASED ON THE PRIMARY CLINICAL RECORDS. [employer] provides no warranty or guarantee of the accuracy or completeness of information in this document.
[2023-10-23 12:27] LABS: Color, Urine Yellow (Yellow); Glucose, Dipstick Normal (Normal); Ketone-Dipstick Negative (Negative); Leukocyte Esterase-Dipstick Negative /ul (Negative); Nitrite-Dipstick Negative (Negative); Occult Blood-Urine Negative /ul (Negative); Protein-Dipstick Negative (Negative); Urine Bilirubin Dipstick Negative (Negative); Urine Clarity Sl. Cloudy (Clear); Urine Urobilinogen Normal (Normal); Urine pH 6.5 (5.0 - 8.0)
[2023-10-23 12:36] LABS: Transitional Epithelial - Ur 0-5 SEEN /hpf (0-5)
== END | disposition home or self-care (01) ==
LOC: LABSPEC 09:21
PROVIDERS: PCP Family Medicine; Referring Provider Family Medicine; Visit Provider Family Medicine
DX: R31.9 Hematuria, unspecified (principal); M75.101 Unspecified rotator cuff tear or rupture of right shoulder, not specified as traumatic
CPT/HCPCS: 81001

== ENCOUNTER 2023-11-20 07:43 | Day surgery (SDC) | payer OTHER, SELFPAY ==
[2023-11-20] MEDS: Lactated Ringers 1,000 ML 15 ML IV (08:17)
--- OUTSIDE RECORDS SUMMARY | 2023-11-20 08:18 | XMS RPT_ITS | CCD ---
Author Name Unknown Address [facility] access hospital[facility] [address] [place] [id number] Organization [facility] Care Team Providers Care Medical Collections Specialist Name Role Phone JEMAL FAITH DO Primary [...] 02-25-2023 Patient encounter procedure JEMAL FAITH DO [facility] Start: 12-15-2021 End: 12-15-2021 Patient encounter procedure JEMAL FAITH DO [facility] Immunizations Immunization Date Immunization Notes Care Provider Fa cility 12-26-2020 COVID-19, mRNA, LNP- S, PF, 100 mcg or 50 mcg dose; Translations: [Moderna COVID-19 Vaccine] JEMAL FAITH DO [facility] 07-29-2020 influenza virus vaccine, unspecified formulation JEMAL FAITH DO [facility] 10-25-2019 influenza virus vaccine, unspecified formulation JEMAL FAITH DO [facility] 08-29-2018 influenza virus vaccine, unspecified formulation JEMAL FAITH DO [facility] 09-09-2014 influenza virus vaccine, unspecified formulation JEMAL FAITH DO [facility] Payers Date Payer Category Payer Unknown [id number] 1955 Unknown [id number] 1955 Unknown [id number] Clinical Note 02-25-2023 Note Date & Type Note Facility 02-25-2023 Note ORIGINAL FROM: [place] [id number] PROCEDURE FOR: MICHELLE HARMAN [address] [place] [address] Home: PID#: [id number] Exam#: [id number] : 1955 Age: 67 TO: JEMAL FAITH DO [address] [place] [address] EXAMINATION: SCREENING DIGITAL BILATERAL MAMMOGRAM WITH TOMOSYNTHESIS, [...] 02/25/2023 2:42:03 PM Ordering Provider: JEMAL FAITH Hydrographical Technical Officer: FABIAN DOYLE RT(R) (M) letter sent: Normal BI-RADS 1 and 2 Mammogram BI-RADS: 2 Benign [facility] Clinical Note 02-25-2023 Note Date & Type Note Facility 02-25-2023 Note ORIGINAL FROM: [place] [address] PROCEDURE FOR: MICHELLE HARMAN [address] [place] [address] Home: PID#: [id number] Exam#: [id number] : 1955 Age: 67 TO: JEMAL FAITH DO [address] [place] [address] EXAMINATION: SCREENING DIGITAL BILATERAL MAMMOGRAM WITH TOMOSYNTHESIS, [...] 02/25/2023 2:42:03 PM Ordering Provider: JEMAL FAITH Hydrographical Technical Officer: FABIAN DOYLE RT(R) (M) letter sent: Normal BI-RADS 1 and 2 Mammogram BI-RADS: 2 Benign [facility] Evaluation + Plan note Note Date & Type Note Facility Evaluation + Plan note No data available for this section [facility] Hospital Discharge instructions Note Date & Type Note Facility Hospital Discharge instructions No data available for this section [facility] Summary Purpose Family History No Family History Records Found Advance Directives No Advanced Directives Records Found Additional Source Comments Patient Care team informatio n (unrecognized section and content) Care Team Personnel Name: JEMAL FAITH DO Member Role: Primary Care Physician Address: Address: [facility] [address] [place] [address] Care Team Related Persons Name: ELÍAS HARMAN Address: [address] INFORMATION SOURCE (unrecogn ized section and [...] BE BASED ON THE PRIMARY CLINICAL RECORDS. [facility]. provides no warranty or guarantee of the accuracy or completeness of information in this document.
[2023-11-20 08:20] VITALS: BP 149/69; PULSE 102; RESP 17; TEMP 36.9; O2SAT 100; BMI 34.8
--- NOTE | 2023-11-20 08:36 | HP.PCM_ITS ---
HPI - General HPI Narrative MICHELLE HARMAN, is a 67 F who presents for right shoulder arthroscopy, subacromial decompression, rotator cuff repair. no changes to h and p. shoulder marked. rab, narcotic counselling and post op instructions. ok to proceed. MR#: [id number] Acct: [id number] Name: MICHELLE HARMAN Rep #: [id number] : 1955 Provider: Dr. Sam Mcnulty MD Age/Sex: 67/F Location: [facility] [place].[facility] Status: Signed Intake Vital Signs 08/06/2308:03 Height 5 ft 4 in Intake Visit Reasons: RIGHT SHOULDER Accompanied by: Is patient in pain?: Yes Allergies No Known Allergies Allergy (Verified 10/22/23 08:04) Medications venlafaxine 75 mg capsule,extended release 24 hr (Effexor XR) 75 mg PO QAM #90 caps 08/08/23 [Rx Confirmed 10/22/23] pantoprazole 40 mg tablet,delayed release 40 mg PO DAILY #90 tabs 10/01/23 [Rx Confirmed 10/22/23] simvastatin 10 mg tablet 10 mg PO QPM cholesterol #90 tabs 10/01/23 [Rx Confirmed 10/22/23] PFSH Medical History Anxiety Difficulty swallowing Gastric reflux Hepatitis High cholesterol Hyperlipidemia Non-smoker Right rotator cuff tear Right shoulder pain Wears contact lenses Wears glasses Surgical History History of colonoscopy Family History Father Heart disease GlaucomaMother Diabetes HypertensionSister Breast cancer Hypertension Heart disease Partial deafness Social History Smoking Status: Never smoker alcohol intake: current alcohol intake frequency: holidays/special occasions only substance use type: does not use what type of physical activity do you participate in: none HPI RIGHT SHOULDER Details: This documentation accurately reflects the service provided and the decisions made by me, Dr. Sam Mcnulty MD 10/22/23 0803. Part of today?s visit was documented by [ ], acting as scribe. MICHELLE HARMAN is a 67 year old F here today for FU right shoulder pain, some improvement with forward lifting. worse in abduction, injection helped some to sleep. haven't been doing very well with home based exercises. stll having quite a bit of lateral and anterior pain, some to posterior triceps area. Ortho Exam General General: Yes no acute distress Neurologic: Yes alert and Yes oriented x3 Psychologic: Yes reasonable and appropriate Right Shoulder Skin/Wound: Yes CDI, No ecchymosis, No erythema and No swelling Testing: Positive Hawkin's, Neer's, Speed's, TTP Biceps and empty can; Negative TTP AC Joint, Drop Arm or scapular winging SHOULDER: normal motor and sens to ax nerve, and MRU and AIN/PIN pain with minimal motion, active FE 100, passive 150 but painful, ER 45. painful arc Coding Level of Care Code Off vis,est,level 3 Diagnoses Right rotator cuff tear M75.101 Right shoulder pain M25.511 Assessment and Plan Assessment and Plan (1) Right rotator cuff tear: Status: Acute Plan: 67-year-old female right shoulder pain despite ongoing nonoperative management including cortisone injection and physical therapy. The patient is interested in surgical management which would be in the form of right shoulder arthroscopy, subacromial decompression, rotator cuff repair. Discussed the diagnosis prognosis different treatment options as well as postoperative recovery 2 weeks in a sling 6 weeks of range of motion exercises and 6 weeks of strengthening at least 3 months before returning to heavy over head lifting. If the patient improves in the next 6 weeks before surgery they will let me know as well to cancel the case but for now the patient wishes to go ahead. Pros and cons risks and benefits were discussed with the patient including but not limited to infection, pain, stiffness, bleeding, damage to surrounding structures, neurovascular injury, recurrence or retear, failure or wear of hardware or fixation, instability, fracture, deep vein thrombosis and pulmonary embolism, anesthetic risks, , patient dissatisfaction, need for further surgery and other risks. Patient understood and wished to proceed with surgery, and signed the informed consent documentation. [facility] Medical History Anxiety Difficulty swallowing Gastric reflux Hepatitis High cholesterol Hyperlipidemia Non-smoker Right rotator cuff tear Right shoulder pain Rosacea Wears contact lenses Wears glasses Home Medications pantoprazole 40 mg tablet,delayed release 40 mg PO DAILY #90 tabs 10/01/23 [Rx Last Taken 11/20/23] simvastatin 10 mg tablet 10 mg PO QPM cholesterol #90 tabs 10/01/23 [Rx Last Taken 11/19/23] venlafaxine 75 mg capsule,extended release 24 hr (Effexor XR) 75 mg PO QAM #90 caps 11/01/23 [Rx Last Taken 11/20/23] minocycline 100 mg tablet 100 mg PO DAILY PRN ROSACEA 11/08/23 [History Last Taken Unknown] Allergy/AdvReac Type Severity Reaction Status Date / Time No Known Allergies Allergy Verified 11/20/23 08:16 Family History Father Heart disease Glaucoma Mother Diabetes Hypertension Sister Breast cancer Hypertension Heart disease Partial deafness Surgical History History of colonoscopy History of esophagogastroduodenoscopy (EGD) Social History Smoking Status: Never smoker alcohol intake: current alcohol intake frequency: holidays/special occasions only substance use type: does not use what type of physical activity do you participate in: none Vital Signs Vital Signs Vital Signs: 11/20/23 08:20 11/20/23 08:20 Temperature 98.5 F Temperature Source Temporal Pulse Rate 102 H Respiratory Rate 17 Respiratory Pattern Normal Blood Pressure 149/69 H Blood Pressure Mean 95 Blood Pressure Source Monitor Blood Pressure Position Semi-Fowlers Blood Pressure Location Left Arm Pulse Ox 100 Oxygen Delivery Method Room Air Weight Weight: 202 lb 13.204 oz Body Mass Index (BMI) 34.8
[2023-11-20] MEDS: Cefazolin 2 GM in 0.9% Normal Saline (100mL Bag) 100 ML IV (09:00)
[2023-11-20] MEDS: Epinephrine (1 mg/ml) 1 MG/ML VIAL (09:36)
[2023-11-20 10:40] VITALS: BP 140/68; BP 149/69; PULSE 91; RESP 16; TEMP 36.1; O2SAT 95
--- NOTE | 2023-11-20 10:42 | OP.PCM_ITS ---
Problems Associated Problem List Diagnoses (1) Right rotator cuff tear: (2) Right shoulder pain: Report of Operation Date of Procedure: 11/20/23 Pre-Operative Diagnosis: Right shoulder rotator cuff tear and impingement syndrome Post-Operative Diagnosis: Same Surgery/Procedure Performed:: Right shoulder arthroscopy, subacromial decompression, rotator cuff repair Surgeon: Sam Mcnulty Type of Anesthesia: Block,Regional and General Anesthesiologist: Phu Live Estimated Blood Loss (mL): 50 Description of Procedure: Patient brought to operating room theater. Placed upon the table. General anesthesia induced. 2 g IV Ancef administered prior to start the case. Patient transferred to right side up lateral decubitus beanbag positioner. Axillary roll used. All bony prominences padded. SCDs on the legs. Upper extremity 5 pounds of inline traction 35 degrees of abduction. Upper extremity prepped and draped in the usual sterile fashion approximate base prep/allowing over 3 minutes drying time prior to draping. Preoperative timeout performed to confirm the site patient and surgery. Began by inserting the arthroscope into the intra-articular portion the shoulder through a standard posterior arthroscopy portal. Did a full diagnostic arthroscopy. Glenoid and humeral head cartilage appeared normal. Slight fraying anterior aspect of labrum. There is a inflammatory synovitis to remove this using electrocautery anteriorly at the rotator interval. I used a inside- out spinal needle localization to create a anterior portal through the rotator interval just posterior to the biceps tendon. Biceps tendon was stable slight synovitis there are no SLAP tears no hypertrophy or tearing. Subscapularis appeared normal. Normal axillary recess no loose bodies. There was an anterior full-thickness leading edge tear of the rotator cuff supraspinatus tendon 1 cm x 1 cm. Marked this using a spinal needle. Next I placed the arthroscope in the subacromial space. I debrided the edge of the tears. I removed any remaining soft tissue off the greater tuberosity at that tear location. Mobility was good. I used the power pick to perform multiple trephination's to stimulate healing in the area. I placed a knotless fiber tack rotator cuff anchor at the medial footprint at the articular margin when I tried to pass the sutures it pulled out the bone quality was very soft in that area unfortunately. Therefore I change my tactic to a single repair in this spot. I passed the fiber tape suture in an inverted horizontal mattress followed by a #2 fiber link suture and a luggage tag configuration to create a ripstop configuration suture technique. I passed these 3 suture limbs into a Arthrex 4.75 mm bio composite swivel lock anchor just lateral to the footprint. This achieved good compression. I did use a stay suture as well to illuminate a dogear at the anterior margin of this in a knotless configuration. This achieved good repair and fixation. No other tears were noted. I did perform a subacromial decompression as well for 4 mm of full rich width. Arthroscopy pictures taken and saved throughout the case onto the system. Wound thoroughly irrigated. Portal sites closed with 3-0 Monocryl and noted using number of portals laterally for working in passing sutures as well as visualization through an accessory posterior lateral portal. Skin cleaned with wet dry dressing followed application of Steri-Strips Adaptic 4 x 4 gauze ABD dressing cloth tape and a sling for the upper extremity. Patient woken up from the general anesthetic transferred off the operating table and taken postanesthetic care unit in stable condition. All sponge needle instrument counts were [place]. cpt [id number] and [id number] Complications none Admit VTE Documentation VTE Present on Admission: No VTE Pharm Prophylaxis ordered?: No Reason prophylaxis not ordered:: Treatment Not Indicated Procedures Musculoskeletal 20xxx-29xxx: Other Procedure See Report
[2023-11-20 10:45] VITALS: BP 132/61; BP 149/69; PULSE 99; RESP 16; O2SAT 95
[2023-11-20 10:50] VITALS: BP 127/74; BP 149/69; PULSE 89; RESP 16; O2SAT 94
--- NOTE | 2023-11-20 10:50 | DCINST_ITS ---
Discharge Instructions Diet Discharge Diet: No restrictions Activity Lifting Restrictions: pendulums only 4x/day, ok for hand wrist elbow ROM Dressing / Incision Call your doctor if your incision/area has: Continuous Slow Oozing, Sudden Increased Bleeding, Increased Pain/ Swelling, Increased Redness, Foul Smelling Discharge and Swelling at the incision site Remove Dressing in: leave in place till F/U Follow Up Care Please Follow Up With: Sam Mcnulty MD When: 2 days Test Results: Test results from this visit will be discussed in further detail at your follow- up appointment, if applicable. Discharge Plan Admission Attending Provider: Sam Mcnulty Primary Care Provider: Paul Reyes Instructions Patient Instructions: After Shoulder Arthroscopy Discharge Orders/Prescriptions Prescriptions: New oxycodone-acetaminophen [Endocet] 5-325 mg tablet 1 tab PO Q4H MDD 6 PRN (Reason: pain) 5 Days Qty: 30 0RF No Action minocycline 100 mg tablet 100 mg PO DAILY PRN (Reason: ROSACEA) Patient Comments: TAKE 1 TABLET BY MOUTH DAILY NEEDED FOR ROSACEA pantoprazole 40 mg tablet,delayed release (DR/EC) 40 mg PO DAILY Qty: 90 0RF simvastatin 10 mg tablet 10 mg PO QPM Qty: 90 1RF venlafaxine [Effexor XR] 75 mg capsule,extended release 24hr 75 mg PO QAM Qty: 90 0RF Referrals / Follow Up: Paul Reyes DO [Primary Care Provider] - Sam Mcnulty MD [Med Staff - Active Staff] - Disposition Disposition (needs filled in before D/C Order can be placed): Home, Self Care
[2023-11-20 10:55] VITALS: BP 135/98; BP 149/69; PULSE 86; RESP 16; TEMP 36.2; O2SAT 94
[2023-11-20 12:14] VITALS: BP 130/80; BP 149/69; PULSE 75; RESP 16; TEMP 36.8; O2SAT 97
== END 2023-11-20 12:16 | disposition home or self-care (01) ==
LOC: SDC 07:47 → AC 07:47
PROVIDERS: PCP Family Medicine; Referring Provider Orthopaedic Surgery Sports Medicine; Visit Provider Orthopaedic Surgery Sports Medicine
PROC: (CPT 29805; principal; 2023-11-20 08:50)
DX: M75.101 Unspecified rotator cuff tear or rupture of right shoulder, not specified as traumatic (principal); M25.511 Pain in right shoulder; E78.00 Pure hypercholesterolemia, unspecified; K21.9 Gastro-esophageal reflux disease without esophagitis; F41.9 Anxiety disorder, unspecified
CPT/HCPCS: 29826; 29827; 01630; 93005; J7120; J2405

== ENCOUNTER → 2024-06-10 | Outpatient (CLI) | payer OTHER, SELFPAY ==
[2024-06-10 15:30] LABS: ALB/GLOB Ratio 1.1 RATIO (0.9-2.4); AST(SGOT) 19 U/L (15-37); Alanine Aminotransfer ALT/SGPT 34 U/L (13-56); Albumin, Serum 4.1 g/dL (3.2-5.0); Alkaline Phosphatase 143 U/L (45-117); Anion Gap 4 (5-15); BUN 11 mg/dL (7-18); BUN/Creat Ratio 12.2 RATIO (10-20); Calcium,Total 9.2 mg/dL (8.5-10.1); Chloride 108 mmol/L (98-107); Cholesterol 181 mg/dL (200); EST Glomerular Filtration Rate 66 mL/min (>60); Est Glom Filt Rate - Afr Amer 80 mL/min (>60); Globulin 3.9 g/dL (2.2-4.2); Glucose 94 mg/dL (74-106); High Density Lipoprotein 39 mg/dL; Potassium 3.7 mmol/L (3.5-5.1); Sodium Level 141 mmol/L (136-145); Triglycerides 204 mg/dL; Very Low Density Lipoprotein 41 mg/dL (5-40)
== END | disposition home or self-care (01) ==
LOC: BIMLAB 14:09
PROVIDERS: PCP Family Medicine; Referring Provider Family Medicine; Visit Provider Family Medicine
DX: K21.9 Gastro-esophageal reflux disease without esophagitis (principal)
CPT/HCPCS: 36415; 80053; 80061